=== PATIENT | female | born 1960 | race Caucasian/White ===

== ENCOUNTER 2021-12-14 14:37 | Emergency (ER) | payer BC ==
[~2021-12-14] VITALS: Ht 160 cm; Wt 70.3 kg
[2021-12-14] MEDS ORDERED: METFORMIN HCL500 M3 PO (14:47)
== END 2021-12-14 15:53 ==
LOC: ER 14:37
DX: R05.9 Cough, unspecified (principal); Z20.822 Contact with and (suspected) exposure to COVID-19